=== PATIENT | female | born 2000 | race Caucasian/White ===

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

== ENCOUNTER 2023-02-02 08:37 | Outpatient (REF) | payer BC, SELFPAY ==
--- NOTE | ~2023-02-02 | CT_ITS ---
EXAMINATION: CT HEAD WITHOUT CONTRAST CLINICAL INFORMATION: Migraines. COMPARISON: None. TECHNIQUE: Contiguous axial imaging was performed from the skullbase to vertex without intravenous administration of contrast. This CT examination was performed using dose optimization techniques as appropriate, variously including the following: *Automated exposure control *Adjustment of mA and/or kV according to patient size (this includes techniques or standardized protocols for targeted exams where dose is matched to indication/reason for exam; i.e. extremities or head) *Use of iterative reconstruction technique DLP: 672 mGy-cm. FINDINGS: There is no evidence of acute intracranial hemorrhage or territorial infarction. No abnormal mass effect or midline shift is seen. Louis to white matter differentiation is well preserved. No extra-axial fluid collections are identified. The ventricles are normal in size. There is no abnormal attenuation within the brain parenchyma. The osseous structures and soft tissues are normal. The mastoid air cells are well aerated. There is uvtp-gj-nylxltqv mucosal thickening in the left sphenoid sinus. CT/CT head/brain wo IV con IMPRESSION: No acute intracranial pathology. Mild to moderate left sphenoid sinus mucosal thickening.
== END 2023-02-02 08:38 | disposition home or self-care (01) ==
LOC: HO.CT 08:37
PROVIDERS: Visit Provider Psychiatry & Neurology Neurology
DX: G43.909 Migraine, unspecified, not intractable, without status migrainosus (principal)
CPT/HCPCS: 70450

== ENCOUNTER 2025-01-02 14:23 | Outpatient (AMB) | payer OTHER, SELFPAY ==
--- NOTE | 2025-01-02 14:58 | AM.OFFWIN_ITS ---
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 Patient Tobacco Use Status: Current someday Tobacco user Allergies No Known Allergies Allergy (Verified 01/02/25 15:03) Do you need a note to return to daycare/school/sports/work: Yes HPI HPI Comments History of Present Illness Details 24 y/o Female patient who [facility] with c/o Headaches x 1 week. Pt reports Nausea, vomiting, Dizziness, Blurry vision, Light and sound sensitivity. She does report h/o Migraine headaches since the age of 16 years, and briefly being followed by Neurology but felt better. Has not had a Migraine headache for 3 years until now. [facility] Medical History (Updated 01/02/25 @ 15:48 by India Hoffman NP) Nausea & vomiting Generalized headaches Social History Patient Tobacco Use Status: Current someday Tobacco user Review of Systems Const All systems reviewed & are unremarkable except as noted in HPI and below Physical Exam Vital Signs: Last Vital Signs Pulse 77 01/02/25 15:01 BP 108/64 01/02/25 15:01 Pulse Ox 99 01/02/25 15:01 Oxygen Delivery Method Room Air 01/02/25 15:01 BMI result Body Mass Index 29.0 Const General: no acute distress; No comfortable Orientation/consciousness: patient oriented x3 HEENT Head: Yes normocephalic Eyes Pupils: Equal, round and reactive pupils present EOM: EOMs intact bilaterally Resp Effort & Inspection: normal respiratory effort Cardio Heart sounds: S1 normal heart sound present and S2 normal heart sound present Neuro General: patient oriented x3 Cranial nerves: Yes Equal, round and reactive pupils present Assessment & Plan Assessment & Plan (1) Generalized headaches: Code(s): R51.9 - Headache, unspecified Plan: Advised Resting in a quiet dark room Take NSAIDs or Acetaminophen for pain relief Avoid Brain stimulation activities such as TV, Phones or Computers Advised to go to ED if pain worse. (2) Nausea & vomiting: Code(s): R11.2 - Nausea with vomiting, unspecified Qualifiers: Vomiting type: unspecified Qualified Code(s): R11.2 - Nausea with vomiting, unspecified Plan: Ordered Zofran for Nausea and vomiting. Medications: New ondansetron 8 mg PO Q8H 20 tabs 0RF R11.2 - Nausea with vomiting, unspecified hwnvnuf-qdajcqdrtvqzh-ejqorjaf 250-250-65 mg (Excedrin Migraine) 1 tab PO Q4-6H PRN 30 tabs 0RF pain R51.9 - Headache, unspecified Coding Level of Care Code New Pt Level 4 (14328) Diagnoses Generalized headaches R51.9 Nausea and vomiting, unspecified vomiting type R11.2 Vomiting type: unspecified Time Spent (min) 20
[2025-01-02 15:01] VITALS: BP 108/64; PULSE 77; O2SAT 99; BMI 29.0
--- OUTSIDE RECORDS SUMMARY | 2025-01-02 16:46 | XMS_ITS | Data Portability ---
Author Organization [facility] [address] Address [address] [place] [address] Assessment Encounter Date Assessment Date Assessment LastModified by Organization Details LastModified Time 08/28/2024 08/28/2024 Based on your Presentation, Exam, and Lab Testing you are being diagnosed with Strep Throat. Your Rapid Strep Test was positive. I am going to prescribe you and antibiotic to cover this infection. Please be sure to complete the full course of this antibiotic to prevent antibiotic resistance. It is also important to complete this antibiotic because this infection is what causes Scarlet Fever/Rheumatic Heart Disease. Antibiotics will typically take 4-5 days to start to work with symptom improvement. The following are my other recommendations to help with symptoms and is important for this diagnosis: 1. Do not share any food or drinks - strep is passed through direct saliva exchange (NOT IN THE AIR) 2. Change your toothbrush in 3-4 days so that you don't re-infect yourself after you complete the antibiotic. 3. Take Ibuprofen or Tylenol if you do not have any allergies to these medications. If you take a blood thinner you should not take NSAIDS like Ibuprofen. These medication will help with the inflammation in your respiratory tract which should help the cough. 4. Do not take any Cold Medications that have a Decongestant in it - this will dry out your throat and make the sore throat worse. 5. Drinking Hot Tea with honey can help coat and soothe your throat. 6. You would be considered contagious for the next 24-48 hours, or until fever resolves. I would be seen again if you develop any of the following symptoms. 1. Fever > 101.0 2. Stiff neck - where you can't turn your neck 3. Trouble swallowing your saliva - drooling 4. Swelling of a lymph node in your throat that is painful to touch 5. Difficulty breathing 6. Severe Headache Thank you for using [facility] today, please feel free to contact our office if you have any questions or concerns. devan Not available 08/28/2024 18:10:58 Plan of Treatment Reminders Order Date Submit Date Provider Last Modified By Organization Details Last Modified Time Details Appointments None recorded. Lab rapid strep group A, throat [address], [address] [place] [address], [phone], 17:57:14 rapid flu (A+B) [address], [address] [place] [address], [phone], 17:57:00 SARS CoV 2 (COVID-19) Ag, QL, IA, upper respiratory specimen [address], [address] [place] [address], [phone], 17:56:40 Referral None recorded. Procedures None recorded. Surgeries None recorded. Imaging None recorded. Medication Orders penicillin V potassium 500 mg tablet 2023 [facility] [place], [place], [address] [place], [address], 12:03:43 Patient TargetsNo targets recorded. Patient Instructions Encounter Date Encounter Id Patient Instructions Last Modified By Organization Details Last Modified Time 08/28/2024 [id number] strep throat: care instructions devan Not available 08/28/2024 18:10:58 sore throat: car e instructions devan Not available 08/28/2024 17:40:07 Reason for Referral None Reported. Results Created Date Observation Date Name Description Value Unit Range Abnormal Flag Note LastModifiedBy Organization Detail LastModifiedTime 08/28/20 24 08/28/2024 rapid flu (A+B) Unknown Analyte negati ve Not Available [facility] [address] [place] [address], [phone], 08/28/2024 17:28:29 08/28/20 24 08/28/2024 rapid flu (A+B) Unknown Analyte negati ve Not Available [facility] [address] [place] [address], [phone], 08/28/2024 17:28:29 08/28/20 24 08/28/2024 rapid flu (A+B) Unknown Analyte yes Not Available [id number] [place], [place] [address] [address] [place] [address], [phone], 08/28/2024 17:28:29 08/28/20 24 08/28/2024 rapid strep group A, throa t Unknown Analyte positi ve Not Available [facility] [address] [place] [address], [phone], 08/28/2024 17:28:10 08/28/20 24 08/28/2024 rapid strep group A, throa t Unknown Analyte yes Not Available [id number] [place], [place] [address] [address] [place] [address], [phone], 08/28/2024 17:28:10 08/28/20 24 08/28/2024 SARS CoV 2 (COVI D-19) Ag, QL, IA, upper respi rator y speci men Unknown Analyte negati ve Not Available [facility] [address] [address] [place] [address], [phone], 08/28/2024 17:28:36 08/28/20 24 08/28/2024 SARS CoV 2 (COVI D-19) Ag, QL, IA, upper respi rator y speci men Unknown Analyte yes Not Available [address] [place] [address] [place] [address], [phone], 08/28/2024 17:28:36 Result Notes None recorded. Problems Name Problem SNOMED Code Status Onset Date Resolution Date Notes Provider Name and Address Organization Details Recorded Time Sore throat 877454047 Active 2023 FLACO MARTINO NP [address] [place], [address], [place] - [facility] 4 17:39:59 Streptococcal sore throat 33146345 Active 2023 FLACO MARTINO NP [address] , [place], [address], [place] - [facility] 4 18:09:30 Problem Notes None recorded. Medical Equipment None Reported. Allergies No known drug allergies Medications Name Sig Start Date Stop Date Status Note LastModified by Organization Details LastModified Time cetirizine 10 mg tablet TAKE 1 TABLET BY MOUTH DAILY active Not Available Not Available No t Available penicillin V potassium 500 mg tablet Take 1 tablet twice a day by oral route for 10 days. 2023 active Not Available Not Available Not Avai lable famotidine 20 mg tablet Take 1 Tablet by mouth 2 times daily. active Not Available Not Available No t Available cephalexin 500 mg capsule TAKE 1 CAPSULE BY MOUTH THREE TIMES DAILY FOR 5 DAYS 08/28 completed Not Available Not Available Not Available azelastine 137 mcg (0.1 %) nasal spray instill 2 SPRAYS IN EACH nostril TWICE DAILY directed active Not Available Not Available No t Available fluticasone propionate 50 mcg/actuati on nasal spray,suspe nsion instill 2 SPRAYS IN EACH nostril ONCE DAILY active Not Available Not Available No t Available simethicone 80 mg chewable tablet Take 1 Tablet by mouth every 6 hours as needed for Flatulenc e for up to 10 days. active Not Available Not Available No t Available Slynd 4 mg (28) tablet Take 1 Tablet by mouth daily. active Not Available Not Available No t Available Vitals Date Recorded Body height Body mass index (BMI) Body weight Pain severity - 0-10 verbal numeric rating [Score] - Reported Oxygen saturation Oxygen saturation in Arterial blood by Pulse oximetry Body temperature Respiratory rate Heart rate Heart rate Heart rate Oxygen saturation Oxygen saturation in Arterial blood by Pulse oximetry Systolic blood pressure Diastolic blood pressure Systolic blood pressure Diastolic blood pressure Systolic blood pressure Diastolic blood pressure Provider Name and Address Organization Details Last Updated DateTime 4 170.18 cm 25.1 kg/m2 13302.7 8 g 4 98 % 98 % 98.5 [degF] 18 /min 124 /min 114 /min 99 /min 99 % 99 % 99 mm[Hg] 62 mm[Hg] 110 mm[Hg] 78 mm[Hg] 120 mm[Hg] 77 mm[Hg] Negar Pardo PA - [facility] 4 18:23:07 Social History Question Answer Notes LastModified by Organizat ion Details LastModified Time Tobacco Smoking Status Never Smoker Negar zapata PA Walter [facility] 08/28/2024 17:27:17 What Is Your Level Of Alcohol Consumption? Occasional Information not available 08/28/2024 How Many Times Per Week Do You Consume Alcohol? Less Than 1 Time Per Week [email or web address] Information not available 08/28/2024 Have You Had A Flu Shot This Season? No [email or web address] Information not available 08/28/2024 If No, Would You Like A Flu Shot Today? No [email or web address] Information not available 08/28/2024 What Was The Date Of Your Most Recent Tobacco Screening? 08/28/2024 [email or web address] Information not available 08/28/2024 Do You Use Any Illicit Or Recreational Drugs? No [email or web address] Information not available 08/28/2024 Have You Recently Traveled Abroad? No Information not available 08/28/2024 Do You Or Have You Ever Used Any Other Forms Of Tobacco Or Nicotine? No [email or web address] Information not available 08/28/2024 Sex: Unknown Functional Status None recorded. Mental Status None recorded. Family History Nothing Reported. Medical History No medical history recorded. Gynecological History Statement/Question Response Date of LMP 08/03/2024 Is there any chance of ? No LMP Definite Obstetrics History GPAL:G 0 P 0 0 0 0 Immunizations Vaccine Type Date Status Note Provider Nam e and Address Organization Details Recorded Time HPV9 5 completed Negar zapata PA - [facility] 08/28/2024 17:26:10 HPV9 5 idalmis zapata PA - [facility] 08/28/2024 17:26:10 IPV 4 completed Negar Edvin null, PA - [facility] 08/28/2024 17:26:10 IPV 7 completed Negar Edvin null, PA - [facility] 08/28/2024 17:26:10 IPV 2 completed Negar Edvin null, PA - [facility] 08/28/2024 17:26:10 IPV 2 completed Negar Edvin null, PA - [facility] 08/28/2024 17:26:10 MMR 4 completed Negar Edvin null, PA - [facility] 08/28/2024 17:26:10 MMR 7 completed Negar Edvin null, PA - [facility] 08/28/2024 17:26:10 COVID-19, mRNA, LNP-S, PF, 100 mcg/0.5mL dose or 50 mcg/0.25mL dose 1 completed Negar Edvin null, PA - [facility] 08/28/2024 17:26:10 COVID-19, mRNA, LNP-S, PF, 100 mcg/0.5mL dose or 50 mcg/0.25mL dose 1 completed Negar Edvin null, PA - [facility] 08/28/2024 17:26:10 Tdap 5 completed Negar Pardo null, PA - [facility] 08/28/2024 17:26:10 Pneumococcal conjugate PCV 13 3 completed Negar Edvin null, PA - [facility] 08/28/2024 17:26:10 Pneumococcal conjugate PCV 13 3 completed Negar Edvin null, PA - [facility] 08/28/2024 17:26:10 Pneumococcal conjugate PCV 13 2 completed Negar Edvin null, PA - [facility] 08/28/2024 17:26:10 Pneumococcal conjugate PCV 13 2 completed Negar Edvin null, PA - [facility] 08/28/2024 17:26:10 varicella 7 completed Negar Edvin null, PA - [facility] 08/28/2024 17:26:10 varicella 3 completed Negar Edvni null, PA - [facility] 08/28/2024 17:26:10 [id number]-[id number] 3 completed Negar Edvin null, PA - [facility] 08/28/2024 17:26:10 HPV, quadrivalent 4 completed Negar Edvin null, PA - [facility] 08/28/2024 17:26:10 Hep B, adolescent or pediatric 3 completed Negar Edvin null, PA - [facility] 08/28/2024 17:26:10 Hep B, adolescent or pediatric 2 completed Negar Edvin null, PA - [facility] 08/28/2024 17:26:10 Hep B, adolescent or pediatric 2 completed Negar Edvin null, PA - [facility] 08/28/2024 17:26:10 Hib (HbOC) 4 completed Negar Edvin null, PA - [facility] 08/28/2024 17:26:10 Hib (HbOC) 3 completed Negar Edvin null, PA - [facility] 08/28/2024 17:26:10 Hib (HbOC) 2 completed Negar Edvin null, PA - [facility] 08/28/2024 17:26:10 Hib (HbOC) 2 completed Negar Edvin null, PA - [facility] 08/28/2024 17:26:10 meningococcal MCV4P 5 completed Negar Edvin null, PA - [facility] 08/28/2024 17:26:10 DTaP 4 completed Negar Edvin null, PA - [facility] 08/28/2024 17:26:10 DTaP 3 completed Negar Edvin null, PA - [facility] 08/28/2024 17:26:10 DTaP 6 completed Negar Edvin null, PA - [facility] 08/28/2024 17:26:10 DTaP 2 completed Negar Pardo null, PA - [facility] 08/28/2024 17:26:10 DTaP 2 completed Negar Pardo null, PA - [facility] 08/28/2024 17:26:10 Influenza, split virus, quadrivalent, PF 0 completed Negar Pardo null, PA - [facility] 08/28/2024 17:26:10 Past Encounters Encounter ID Performer Location Encounter Start Date Encounter Closed Date Diagnosis/Indication Diagnosis SNOMED-CT Code Diagnosis ICD10 Code Diagnosis Note [id number] [address] [address] 09/07/2020 14:49:00 09/07/2020 18:31:15 [id number] [place] [address] [address] 08/28/2024 17:00:41 08/28/2024 18:48:10 Sore throat 296528680 J02.9 Streptococ iam sore throat 46904930 J02.0 Health Concerns Section Related Observation LastModified by Organization Detai ls LastModified Time None Recorded Concern Status LastModified by Organization Details LastModified Time None Recorded Advance Directives Directive None Recorded Payers Encounter Date Sequence Insurance Name Policy Number Policy Ann Covered Member ID Ann Member ID Guarantor Name 09/07/2020 1 [facility] [id number] Flaco Dyer [id number] Gladys Dyer 08/28/2024 1 [facility] [id number] Gladys Dyer [id number] Gladys Dyer Notes Date Note Type Note Provider Name and Address Organization Details Recorded Time 4 text/html Sore throatReported bypatient.Source of patient informationInformation obtained from patient; Patient arrived at Urgent Care ambulatory Location:throat Severity:moderate Quality:burning Onset/Timin days Associated Symptoms:no cough; no sputum production; no shortness of breath; no wheezing; no sinus pain; no vomiting; no nausea; No hoarseness Context:no sick contacts Modifying Factors:OTC medication FLACO MARTINO NP [address] [place], [address], [place] - [facility] 08/28/2024 18:47:47 OBGyn Episode No OBEpisode recorded.
--- OUTSIDE RECORDS SUMMARY | 2025-01-02 16:46 | XMS_ITS | Clinical Summary ---
Author Organization [facility] Address [address] [place] [address] Phone Care Team Providers Care Power Lineman Technician Name Role Phone Physician, No Pcp Primary Care Provider Unavaila ble Encounters Date Type Department Care Team Description 11/02/2024 5:00 PM EST Office Visit [facility] [address] [address] Ludy Calles NP Viral URI (Primary Dx) from Last 3 Months Surgical History Surgery Date Site/Laterality Comments OTHER SURGICAL HISTORY PROCEDURE: DENIES PREVIOUS SURGERY OTHER SURGICAL HISTORY 04/25/2022 Right PROCEDURE: HISTORY OTHER; COMMENT: sesamoidectomy tibal OVARIAN CYST REMOVAL 06/08/2023 Left PROCEDURE: TN OVARIAN CYSTECTOMY UNI/BI; COMMENT: laparoscopic- dermoid Medical History Medical History Date Comments Migraine headache without aura 08/03/2017 D X:Migraine headache without aura; COMMENT: 08/07 Had for months. 1 ER visit with out relief. Nl CT scan. Now on MAgnesium and Riboflavin with improvement. Infectious mononucleosis 02/2020 DX:Infe ctious mononucleosis; COMMENT: had in past per EBV titers Peritonsillar abscess 07/22/2022 DX:Periton sillar abscess; COMMENT: 07/13/22 Seen in ER given Augmetnin. FU with ENT no need for surgery. Family History Medical History Relation Name Comments Other: endometriosis Aunt 1 maternal Ovarian cancer Aunt 2 maternal 27yr Obesity Father Ovarian cancer Father's side Other: heart and lung Maternal Grandfather Diabetes Mother migraines Breast cancer Mother's side aunt ?20s Colon cancer Paternal Grandfather Dementia Paternal Grandmother Other: SIDS Sister 1 x 1 as Cancer of Small Bowel Neg Hx Pancreatic cancer Neg Hx Stomach cancer Neg Hx Uterine cancer Neg Hx Relation Name Status Comments Aunt 1 maternal Alive Aunt 2 maternal Brother 1/2 sib Alive Father Alive Father's side Alive Maternal Grandfather Maternal Grandmother Alive Mother Alive Mother's side aunt Alive Paternal Grandfather Paternal Grandmother Alive Sister 1 x 1 Alive Sister 2 x 1 Alive Social History Tobacco Use Types Packs/Day Years Used Date Smoking Tobacco: Never Smokeless Tobacco: Never Alcohol Use Standard Drinks/Week Comments Yes 0 (1 standard drink = 0.6 oz pur e alcohol) Comments Unknown Sex and Gender Information Value Date Recorded Sex Assigned at Not on file Legal Sex Female 1:46 PM EST Gender Identity Not on file Sexual Orientation Not on file Obstetrics History Last Filed Vital Signs Vital Sign Reading Time Taken Comments Blood Pressure 113/79 11/02/2024 5:22 PM EST Pulse 91 11/02/2024 5:22 PM EST Temperature 36.6 ??C (97.8 ??F) 11/02/2024 5:22 PM ES T Respiratory Rate - - Oxygen Saturation 98% 11/02/2024 5:22 PM EST Inhaled Oxygen Concentration - - Weight 80.3 kg (177 lb) 11/25/2023 3:21 PM EST Height 170.2 cm (5' 7 ) 11/25/2023 3:21 PM EST Body Mass Index 27.72 11/25/2023 3:21 PM EST Plan of Treatment Health Maintenance Due Date Last Done Comments Gonorrhea/Chlamydia Screening 2002 Meningococcal B Vaccine (1 of 2 - Standard) 2018 Depression Screening 08/19/2022 HIV Screening 08/19/2022 Hepatitis C Screening 08/19/2022 Social Influencers of Health Screening 08/19/2022 Cervical Cancer Screening: Pap Smear 2023 COVID-19 Vaccine ( - season) 2024 02/15/2021, 01/18/2021 DTaP,Tdap,and Td Vaccines (7 - Td or Tdap) 05/15/2025 05/15/2015, 05/12/2006, 11/15/2003, Additional history exists Influenza Vaccine (Season Ended) 2025 09/08/2020 Cholesterol Screening (Lipid Panel) 07/22/2029 07/22/2024 Hepatitis B Vaccines Completed 2002, 2002, 2002 Pneumococcal Vaccine: Pediatrics (0 to 5 Years) and At-Risk Patients (6 to 64 Years) Completed 05/26/2003, 2002, 2002, Additional history exists HIB Vaccines Completed 11/15/2003, 10/23, 2002, Additional history exists IPV Vaccines Completed 05/04/2007, 10/23, 11/15/2003, Additional history exists MMR Vaccines Completed 05/04/2007, 11/15/2003 Varicella Vaccines Completed 05/04/2007, 05/26/2003 Meningococcal ACWY Vaccine Aged Out 05/15/2015 N o longer eligible based on patient's age to complete this topic HPV Vaccines Completed 09/19/2015, 04/22, 05/15/2014 Hepatitis A Vaccines Aged Out No long er eligible based on patient's age to complete this topic RSV Immunization Patients Under 20 months Aged Out No longer eligible based on patient's age to complete this topic Procedures Procedure Name Priority Date/Time Associated Diagnosis Comments POC RAPID [id number], MOLECULAR Routine 11/02/2024 8:50 AM EST Viral URI POC INFLUENZA A&B CHUNG Routine 11/02/2024 8:49 AM EST Viral URI from Last 3 Months Results * Poc Rapid [id number], MOLECULAR (11/02/2024 8:50 AM EST) Pathologist [facility] COVID-19/SARS- COV-2 Rapid POC Negative Negative Internal Control Pass Yes Yes Swab Nasopharyngeal structure / Unknown 11/02/2024 8:50 AM EST Ludy Calles NP POINT OF CARE TEST ENTER/EDIT ORDERABLES Final Result * POC Influenza A&B CHUNG (11/02/2024 8:49 AM EST) Pathologist [facility] POC Taty Flu A Antigen Negative Negative POC Taty Flu B Antigen Negative Negative Swab Nasopharyngeal structure / Unknown 11/02/2024 8:49 AM EST us Ludy Calles NP POINT OF CARE TEST ENTER/EDIT ORDERABLES Final Result from Last 3 Months Insurance [facility] [address] [place] [id number] Care Teams Power Lineman Technician Relationship Specialty Start Date End Date Physician, No Pcp PCP - General 11/22/24
--- OUTSIDE RECORDS SUMMARY | 2025-01-02 16:46 | XMS_ITS ---
Author Name [facility] Organization Unknown Encounters Encounter Type Encounter Reason Primary Diagnosis Location Date Ambulatory [facility] 08/28/2024 Emergency Alcohol use, unspecified with intoxication, unspecified [facility] 04/04/2023 Care Team Organization Name Specialty Phone Email Start Date End Da te [facility] 04/04/2023
--- OUTSIDE RECORDS SUMMARY | 2025-01-02 16:47 | XMS_ITS | Clinical Summary ---
Author Organization [facility] Address [address] [place] [address] Care Team Providers Care Sales Enablement Analyst Name Role Phone Unavailable Primary Care Provider Unavailabl e Medications No known medications Social History Tobacco Use Types Packs/Day Years Used Date Smoking Tobacco: Never Assessed Sex and Gender Information Value Date Recorded Sex Assigned at Female 04/05/2023 12:52 AM EDT Gender Identity Not on file Sexual Orientation Not on file Job Start Date Occupation Industry Not on file Not on file Not on file Last Filed Vital Signs Vital Sign Reading Time Taken Comments Blood Pressure 109/69 04/04/2023 10:20 PM EDT Pulse 96 04/04/2023 10:20 PM EDT Temperature 36.7 ??C (98.1 ??F) 04/04/2023 10:20 PM E DT Respiratory Rate 18 04/04/2023 10:20 PM EDT Oxygen Saturation 97% 04/04/2023 10:20 PM EDT Inhaled Oxygen Concentration - - Weight - - Height - - Body Mass Index - - Plan of Treatment [place] [id number]
== END 2025-01-02 15:51 | disposition home or self-care (01) ==
PROVIDERS: PCP Obstetrics & Gynecology; Visit Provider Nurse Practitioner Family
DX: R51.9 Headache, unspecified (principal); R11.2 Nausea with vomiting, unspecified

== ENCOUNTER → 2025-01-02 14:23 | Outpatient (BNVA) | payer OTHER, SELFPAY | PROVIDERS: PCP Obstetrics & Gynecology; Visit Provider Nurse Practitioner Family ==